=== PATIENT | female | born 1950 | race Caucasian/White ===

== ENCOUNTER 2018-12-15 12:37 | Emergency (ER) | payer MEDICARE, BC ==
[~2018-12-15] VITALS: Ht 170.2 cm; Wt 68.0 kg
[2018-12-15] MEDS ORDERED: ASPI81CH PO (12:44)
== END 2018-12-15 14:23 | disposition home or self-care (01) ==
LOC: ER 12:37
DX: S00.12XA Contusion of left eyelid and periocular area, initial encounter (principal); M25.512 Pain in left shoulder; M25.562 Pain in left knee; W18.30XA Fall on same level, unspecified, initial encounter; Z79.82 Long term (current) use of aspirin
CPT/HCPCS: 70450; 73030; 99284-25

== ENCOUNTER 2024-10-06 07:19 | Emergency (ER) | payer OTHER ==
[~2024-10-06] VITALS: Ht 170.2 cm; Wt 72.6 kg
[~2024-10-06 07:19] MED LIST: ASPI81CH PO; Ibuprofen600 MG PO
[2024-10-06 07:59] VITALS: BP 177/99
[2024-10-06] MEDS ORDERED: Lidocaine 2% Viscous Soln 15 ML UDC PO ONE (08:20)
[2024-10-06] MEDS ORDERED: Mag Hydrox/AL Hydrox/Simeth 30 ML UDC PO ONE (08:20)
== END 2024-10-06 09:57 | disposition home or self-care (01) ==
LOC: ER 07:19
DX: T54.91XA Toxic effect of unspecified corrosive substance, accidental (unintentional), initial encounter (principal); J02.9 Acute pharyngitis, unspecified
CPT/HCPCS: 71046; 99283-25; A9270